=== PATIENT | female | born 1960 | race Caucasian/White ===

== ENCOUNTER 2016-12-30 09:59 | Emergency (ER) | payer OTHER ==
[~2016-12-30] VITALS: Ht 162.6 cm; Wt 88.8 kg
[2016-12-30 10:00] VITALS: BP 148/89
[2016-12-30] MEDS ORDERED: KETOROLAC 30 MG/1 ML IM ONE (10:30)
[2016-12-30] MEDS ORDERED: KETOROLAC 30 MG/1 ML ONE (10:49)
[2016-12-30 11:34] LABS: BLOOD UREA NITROGEN 15 mg/dL (7-18)
[2016-12-30] MEDS ORDERED: APIXABAN 5 MG TABLET PO ONE (12:30)
== END 2016-12-30 12:40 | disposition home or self-care (01) ==
LOC: ED 12:34
DX: I80.01 Phlebitis and thrombophlebitis of superficial vessels of right lower extremity (principal); D68.2 Hereditary deficiency of other clotting factors; Z79.82 Long term (current) use of aspirin
CPT/HCPCS: 36415; 80048; 82040; 85025; 85610; 85730